=== PATIENT | female | born 1975 | race Caucasian/White ===

== ENCOUNTER → 2017-02-27 | Outpatient (CLI) | payer BC ==
[~2017-02-27] VITALS: Ht 165.1 cm; Wt 72.6 kg
[~2017-02-27] MED LIST: ADVIL200 MG PO; FIBER THERAPY0.52 GM PO; PROBIOTIC1 EAC1 PO
== END | disposition home or self-care (01) ==
LOC: AMB 10:00
PROC: 0DBE8ZX Excision of Large Intestine, Via Natural or Artificial Opening Endoscopic, Diagnostic (ICD-10-PCS; principal; 2017-02-27)
DX: R19.7 Diarrhea, unspecified (principal)
CPT/HCPCS: 88305; J2250; J3010